=== PATIENT | female | born 1955 | race Caucasian/White ===

== ENCOUNTER 2017-04-13 15:04 | Outpatient (CLI) | payer OTHER ==
[~2017-04-13 15:04] MED LIST: CORT25TA PO; FLUC50TA PO; HYDR-1189 PO; LEVO1CAP7 PO; LEVO50TA77 PO; LIOT50TA4 PO; LIOT5TAB10 PO; LORA10TA7 PO; MONT10TA25 PO; PROG100C6 PO; TEST5GEL18 TD
== END 2017-04-13 20:48 | disposition home or self-care (01) ==
LOC: SRD 15:04
PROVIDERS: ATTEND Orthopaedic Surgery
DX: M47.896 Other spondylosis, lumbar region (principal); M41.85 Other forms of scoliosis, thoracolumbar region
CPT/HCPCS: 72110

== ENCOUNTER 2017-06-23 09:30 | Outpatient (CLI) | payer OTHER ==
[~2017-06-23] VITALS: Ht 167.6 cm; Wt 119.3 kg
[2017-06-23 10:56] VITALS: BP_SYST 137
[2017-06-23] MEDS ORDERED: ONDANSETRON HCL 4 MG/2 ML VIAL ONE (11:31)
== END 2017-06-23 21:21 | disposition home or self-care (01) ==
LOC: SLB 09:30 → SDS 09:30 → SPU 13:40 → SLB 13:40
PROVIDERS: ATTEND Specialist
DX: R32 Unspecified urinary incontinence (principal); Z53.29 Procedure and treatment not carried out because of patient's decision for other reasons
CPT/HCPCS: J2405; J7120

== ENCOUNTER 2017-07-01 05:45 | Day surgery (SDC) | payer OTHER ==
[~2017-07-01] VITALS: Ht 167.6 cm; Wt 119.3 kg
[2017-07-01] MEDS: KETOROLAC TROMETHAMINE 30 MG VIAL ONE (10:28)
[2017-07-01] MEDS ORDERED: HYDROcodone/ACETAMIN 5-325 MG TAB (NORCO/ VICODIN) PO PRN (10:30)
[2017-07-01] MEDS ORDERED: ONDANSETRON HCL 4 MG/2 ML VIAL IVP PRN (10:30)
[2017-07-01] MEDS ORDERED: OXYCODONE/ACETAMINOPHEN 5-325 TABLET PO PRN ×2 (10:30)
[2017-07-01] MEDS ORDERED: ALBUTEROL SULFATE 0.083% 2.5 MG/3 ML VIAL.NEB INH ONE ×2 (10:36→10:45)
[2017-07-01] MEDS ORDERED: OXYCODONE/ACETAMINOPHEN 5-325 TABLET ONE (11:37)
[2017-07-01] MEDS: OXYCODONE/ACETAMINOPHEN 5-325 TABLET PO ONE (12:15)
[2017-07-01] MEDS ORDERED: OXYCODONE/ACETAMINOPHEN 5-325 TABLET PO ONE (12:15)
[2017-07-01 13:03] VITALS: BP_SYST 136
== END 2017-07-01 16:00 | disposition home or self-care (01) ==
LOC: SMU 05:45 → SDS 05:45
PROVIDERS: ATTEND Specialist
DX: K42.9 Umbilical hernia without obstruction or gangrene (principal)
CPT/HCPCS: 49652; C1727; C1782; J1885; J7120

== ENCOUNTER 2017-07-28 15:03 | Outpatient (CLI) | payer OTHER | END 2017-07-28 18:44 | disposition home or self-care (01) | LOC: SLB 15:03 | PROVIDERS: ATTEND Specialist | DX: Z01.812 Encounter for preprocedural laboratory examination (principal) | CPT/HCPCS: 36415; 82565-TC; 84520-TC ==

== ENCOUNTER 2017-07-29 08:38 | Outpatient (CLI) | payer OTHER ==
[2017-07-29] MEDS ORDERED: DIATR MEGLU/DIATRIZ SOD 30 ML SOLUTION PO ONE (08:48)
[2017-07-29] MEDS ORDERED: IOHEXOL 100 ML IV ONE (10:47)
== END 2017-07-29 19:15 | disposition home or self-care (01) ==
LOC: SCT 08:38
PROVIDERS: ATTEND Specialist
DX: K43.9 Ventral hernia without obstruction or gangrene (principal); N28.1 Cyst of kidney, acquired; K44.9 Diaphragmatic hernia without obstruction or gangrene
CPT/HCPCS: 74177; Q9964; Q9967

== ENCOUNTER → 2018-08-04 | Outpatient (CLI) | payer OTHER ==
[2018-07-31 14:17] LABS: BILIRUBIN,URINE NEGATIVE (NEGATIVE); BLOOD, URINE NEGATIVE (NEGATIVE); CALCIUM 8.6 mg/dL (8.4-11.0); CLARITY/URINE CLEAR (CLEAR); COLOR,URINE YELLOW (YELLOW); CREATININE 0.64 mg/dL (0.55-1.30); GLUCOSE,URINE NEGATIVE (NEGATIVE); KETONES,URINE NEGATIVE (NEGATIVE); LEUKOCYTE ESTERASE ,URINE NEGATIVE (NEGATIVE); NITRITE, URINE NEGATIVE (NEGATIVE); PH,URINE 5.5 (5.0-8.0); POTASSIUM 3.7 mmol/L (3.5-5.1); PROTEIN URINE NEGATIVE (NEGATIVE); UROBILINOGEN,URINE 0.2 (0.2-1.0)
[2018-07-31 14:22] LABS: BASOPHILS # (AUTO) 0.2 K/uL (0.0-0.2); BASOPHILS % (AUTO) 1.5 % (0.0-2.0); EOSINOPHILS # (AUTO) 0.2 K/uL (0.0-0.4); HEMATOCRIT 39.4 % (36-48); HEMOGLOBIN 12.9 g/dL (12.0-16.0); LYMPHOCYTES # (AUTO) 4.2 K/uL (1.0-5.5); LYMPHOCYTES % (AUTO) 40.2 % (20.5-51.5); MEAN CORPUSCULAR HEMOGLOBIN 27 pg (27-31); MEAN CORPUSCULAR HGB CONC 33 % (32-36); MEAN CORPUSCULAR VOLUME 82 fL (79.0-98.0); MONOCYTES # (AUTO) 0.6 K/uL (0.0-1.0); MONOCYTES % (AUTO) 6.1 % (1.7-9.3); NEUTROPHILS # (AUTO) 5.3 K/uL (1.8-7.7); NEUTROPHILS % (AUTO) 50.2 % (40.0-70.0); PLATELET COUNT (AUTO) 237 K/uL (130-430); RED CELL DISTRIBUTION WIDTH 14.3 % (9.0-15.0); WHITE BLOOD COUNT (AUTO) 10.5 K/uL (4.8-10.8)
[~2018-08-04] VITALS: Ht 167.6 cm; Wt 117.5 kg
[~2018-08-04] MED LIST changes: +CLINDAMYCIN PHOS 900 MG/ D5W 50 ML PREMIX IV ONE; -LEVO50TA77 PO; +SYN50 PO
== END | disposition still patient (30) ==
LOC: EDSTATUS 08:43 → SLB 12:00
PROVIDERS: ATTEND Orthopaedic Surgery
DX: Z01.812 Encounter for preprocedural laboratory examination (principal); Z01.818 Encounter for other preprocedural examination; M23.207 Derangement of unspecified meniscus due to old tear or injury, left knee
CPT/HCPCS: 36415; 71046-TC; 80048; 81003; 85025; J3490

== ENCOUNTER 2018-12-29 10:28 | Day surgery (SDC) | payer OTHER ==
[2018-12-26 08:06] LABS: BILIRUBIN,URINE NEGATIVE (NEGATIVE); BLOOD, URINE NEGATIVE (NEGATIVE); CLARITY/URINE SL HAZY (CLEAR); COLOR,URINE YELLOW (YELLOW); GLUCOSE,URINE NEGATIVE (NEGATIVE); KETONES,URINE NEGATIVE (NEGATIVE); LEUKOCYTE ESTERASE ,URINE NEGATIVE (NEGATIVE); NITRITE, URINE NEGATIVE (NEGATIVE); PROTEIN URINE NEGATIVE (NEGATIVE); UROBILINOGEN,URINE 0.2 (0.2-1.0)
[2018-12-26 08:07] LABS: BASOPHILS # (AUTO) 0.1 K/uL (0.0-0.2); BASOPHILS % (AUTO) 0.5 % (0.0-2.0); EOSINOPHILS # (AUTO) 0.3 K/uL (0.0-0.4); EOSINOPHILS % (AUTO) 1.9 % (0.0-4.0); HEMATOCRIT 39.4 % (36-48); HEMOGLOBIN 12.9 g/dL (12.0-16.0); LYMPHOCYTES # (AUTO) 8.6 K/uL (1.0-5.5); LYMPHOCYTES % (AUTO) 52.5 % (20.5-51.5); MEAN CORPUSCULAR HEMOGLOBIN 28 pg (27-31); MEAN CORPUSCULAR HGB CONC 33 % (32-36); MEAN CORPUSCULAR VOLUME 85 fL (79.0-98.0); MONOCYTES # (AUTO) 0.8 K/uL (0.0-1.0); MONOCYTES % (AUTO) 4.6 % (1.7-9.3); NEUTROPHILS # (AUTO) 6.6 K/uL (1.8-7.7); PLATELET COUNT (AUTO) 284 K/uL (130-430); RED BLOOD CELL COUNT(AUTO) 4.64 MIL/uL (4.2-6.2); RED CELL DISTRIBUTION WIDTH 13.3 % (9.0-15.0); WHITE BLOOD COUNT (AUTO) 16.4 K/uL (4.8-10.8)
[2018-12-26 08:16] LABS: CREATININE 0.71 mg/dL (0.55-1.30); POTASSIUM 3.7 mmol/L (3.5-5.1)
[2018-12-26 10:45] LABS: NEUTROPHILS % (AUTO) 40.5 % (40.0-70.0)
[~2018-12-29] VITALS: Ht 167.6 cm; Wt 115.7 kg
[~2018-12-29 10:28] MED LIST changes: -CLINDAMYCIN PHOS 900 MG/ D5W 50 ML PREMIX IV ONE; +LevALBUTEROL HCL 1.25 MG/0.5 ML *CONC.* VIAL.NEB (XOPENEX CONC.) INH ONE
[2018-12-29] MEDS ORDERED: LEVALBUTEROL HCL 0.63 MG/3 ML VIAL.NEB INH ONE (10:30)
[2018-12-29] MEDS ORDERED: CLINDAMYCIN 900 mg/50mL D5W 50 ML IV ONE (10:45)
[2018-12-29] MEDS ORDERED: LevALBUTEROL HCL 1.25 MG/0.5 ML *CONC.* VIAL.NEB (XOPENEX CONC.) INH ONE (10:54)
[2018-12-29] MEDS ORDERED: CLINDAMYCIN PHOSPHATE 900 mg/50mL D5W IV ONE (11:15)
[2018-12-29] MEDS ORDERED: PROPOFOL 200MG/ 20ML VIAL (DIPRIVAN) IV ONE (11:15)
[2018-12-29] MEDS ORDERED: MIDAZOLAM HCL 5 MG/5 ML VIAL IVP ONE (11:15)
[2018-12-29] MEDS ORDERED: ONDANSETRON HCL 4 MG/2 ML VIAL IVP ONE (11:15)
[2018-12-29] MEDS ORDERED: DEXAMETHASONE SOD PHOSPHATE 4 MG/ML VIAL IVP ONE (11:15)
[2018-12-29] MEDS ORDERED: ROCURONIUM BROMIDE 10 MG/ML (ZEMURON) IV ONE (11:15)
[2018-12-29] MEDS ORDERED: KETOROLAC TROMETHAMINE 30 MG VIAL IVP ONE (11:15)
[2018-12-29] MEDS ORDERED: fentaNYL CITRATE 250 MCG/5 ML AMP IV ONE (11:15)
[2018-12-29] MEDS ORDERED: NS 1000 ML IV.SOLN IV ONE (11:15)
[2018-12-29] MEDS ORDERED: SEVOFLURANE 15 MIN GAS INH ONE (11:15)
[2018-12-29] MEDS ORDERED: METOCLOPRAMIDE HCL 10 MG/2 ML VIAL IVP ONE (11:15)
[2018-12-29] MEDS ORDERED: LR 1,000 ML IV SCH ×2 (12:31→13:29)
[2018-12-29] MEDS ORDERED: HYDROmorphone 1 MG INJ. 1 MG/ML AMPUL IVP PRN (12:45)
[2018-12-29] MEDS ORDERED: MEPERIDINE HCL/PF 25 MG/ML DISP.SYRIN IVP PRN (12:45)
[2018-12-29] MEDS ORDERED: HYDROmorphone 2 MG/ML VIAL IVP PRN ×2 (12:45)
[2018-12-29] MEDS ORDERED: HYDROcodone/ACETAMIN 5-325 MG TAB (NORCO/ VICODIN) PO PRN (13:30)
[2018-12-29] MEDS ORDERED: HYDROcodone/ACETAMIN 10-325 MG TAB PO PRN (13:30)
[2018-12-29] MEDS ORDERED: DIPHENHYDRAMINE HCL 25 MG CAPSULE PO PRN (13:30)
[2018-12-29] MEDS ORDERED: HYDROmorphone 2 MG/ML VIAL ONE (14:34)
[2018-12-29 15:22] VITALS: BP_SYST 133
[2018-12-29] MEDS ORDERED: HYDROcodone/ACETAMIN 5-325 MG TAB (NORCO/ VICODIN) ONE (16:08)
== END 2018-12-29 16:29 | disposition home or self-care (01) ==
LOC: SDS 10:28 → SMU 10:29 → SDS 16:29
PROVIDERS: ATTEND Orthopaedic Surgery
DX: M23.232 Derangement of other medial meniscus due to old tear or injury, left knee (principal); M17.12 Unilateral primary osteoarthritis, left knee; M23.92 Unspecified internal derangement of left knee; M94.262 Chondromalacia, left knee; M65.9 Synovitis and tenosynovitis, unspecified; M25.462 Effusion, left knee; C91.90 Lymphoid leukemia, unspecified not having achieved remission; B60.0 Babesiosis; Z68.41 Body mass index [BMI] 40.0-44.9, adult; N20.0 Calculus of kidney; Z91.09 Other allergy status, other than to drugs and biological substances; J45.909 Unspecified asthma, uncomplicated; G47.33 Obstructive sleep apnea (adult) (pediatric); Z99.81 Dependence on supplemental oxygen; N30.10 Interstitial cystitis (chronic) without hematuria; M79.7 Fibromyalgia; M40.209 Unspecified kyphosis, site unspecified; Z98.890 Other specified postprocedural states; Z79.899 Other long term (current) drug therapy; Z88.0 Allergy status to penicillin; Z88.2 Allergy status to sulfonamides; Z88.1 Allergy status to other antibiotic agents; Z80.9 Family history of malignant neoplasm, unspecified; E66.01 Morbid (severe) obesity due to excess calories
CPT/HCPCS: 29881; 36415; 80048; 81003; 85025; 94640; C1727; J1100; J1170; J1885; J2250; J2405; J2704; J2765; J3010; J3490; J7030; J7120; J7612

== ENCOUNTER 2020-03-21 10:28 | Outpatient (CLI) | payer OTHER ==
[~2020-03-21 10:28] MED LIST changes: -LIOT50TA4 PO; +LIOT50TA6 PO; -LIOT5TAB10 PO; +LIOT5TAB11 PO; -LevALBUTEROL HCL 1.25 MG/0.5 ML *CONC.* VIAL.NEB (XOPENEX CONC.) INH ONE; -MONT10TA25 PO; +MONT10TA27 PO; +PROG100C11 PO; -PROG100C6 PO
== END 2020-03-21 20:04 | disposition home or self-care (01) ==
LOC: SUS 10:28
DX: N63.20 Unspecified lump in the left breast, unspecified quadrant (principal); R92.8 Other abnormal and inconclusive findings on diagnostic imaging of breast
CPT/HCPCS: 76642; 76770

== ENCOUNTER 2022-06-30 11:47 | Day surgery (SDC) | payer OTHER ==
[2022-06-25 14:52] LABS: BILIRUBIN,URINE NEGATIVE (NEGATIVE); BLOOD, URINE NEGATIVE (NEGATIVE); CLARITY/URINE CLEAR (CLEAR); COLOR,URINE YELLOW (YELLOW); GLUCOSE,URINE NEGATIVE (NEGATIVE); KETONES,URINE NEGATIVE (NEGATIVE); LEUKOCYTE ESTERASE ,URINE NEGATIVE (NEGATIVE); NITRITE, URINE NEGATIVE (NEGATIVE); PH,URINE 5.5 (5.0-8.0); PROTEIN URINE NEGATIVE (NEGATIVE); UROBILINOGEN,URINE 0.2 (0.2-1.0)
[2022-06-25 14:54] LABS: BASOPHILS # (AUTO) 0.1 K/uL (0.0-0.2); BASOPHILS % (AUTO) 0.7 % (0.0-2.0); EOSINOPHILS # (AUTO) 0.1 K/uL (0.0-0.4); EOSINOPHILS % (AUTO) 0.4 % (0.0-4.0); HEMATOCRIT 34.5 % (36-48); HEMOGLOBIN 11.3 g/dL (12.0-16.0); LYMPHOCYTES # (AUTO) 10.3 K/uL (1.0-5.5); LYMPHOCYTES % (AUTO) 50.7 % (20.5-51.5); MEAN CORPUSCULAR HEMOGLOBIN 25 pg (27-31); MEAN CORPUSCULAR HGB CONC 33 % (32-36); MEAN CORPUSCULAR VOLUME 76 fL (79.0-98.0); MONOCYTES % (AUTO) 4.8 % (1.7-9.3); NEUTROPHILS # (AUTO) 8.9 K/uL (1.8-7.7); NEUTROPHILS % (AUTO) 43.4 % (40.0-70.0); PLATELET COUNT (AUTO) 312 K/uL (130-430); RED BLOOD CELL COUNT(AUTO) 4.52 MIL/uL (4.2-6.2); RED CELL DISTRIBUTION WIDTH 15.3 % (9.0-15.0); WHITE BLOOD COUNT (AUTO) 20.4 K/uL (4.8-10.8)
[2022-06-25 14:55] LABS: HCG,QUAL RESULT NEGATIVE (NEGATIVE)
[2022-06-25 15:16] LABS: ALBUMIN 3.3 g/dL (3.4-4.8); CALCIUM 8.8 mg/dL (8.4-11.0); CREATININE 0.72 mg/dL (0.55-1.30); TOTAL BILIRUBIN 0.3 mg/dL (0.0-1.0)
[~2022-06-30] VITALS: Ht 166.4 cm; Wt 120.2 kg
[~2022-06-30 11:47] MED LIST changes: +CEFAZOLIN SOD 2 GM in D5W 50 ML IV ONE; -HYDR-1189 PO; +HYDR-3919 PO; +MONT-40 PO; -MONT10TA27 PO
[2022-06-30 13:34] LABS: BASOPHILS # (AUTO) 0.3 K/uL (0.0-0.2); BASOPHILS % (AUTO) 1.1 % (0.0-2.0); EOSINOPHILS % (AUTO) 0.1 % (0.0-4.0); HEMATOCRIT 34.9 % (36-48); HEMOGLOBIN 11.3 g/dL (12.0-16.0); LYMPHOCYTES # (AUTO) 10.3 K/uL (1.0-5.5); LYMPHOCYTES % (AUTO) 37.2 % (20.5-51.5); MEAN CORPUSCULAR HEMOGLOBIN 25 pg (27-31); MEAN CORPUSCULAR HGB CONC 32 % (32-36); MEAN CORPUSCULAR VOLUME 76 fL (79.0-98.0); MONOCYTES # (AUTO) 0.6 K/uL (0.0-1.0); NEUTROPHILS # (AUTO) 16.6 K/uL (1.8-7.7); NEUTROPHILS % (AUTO) 59.6 % (40.0-70.0); PLATELET COUNT (AUTO) 300 K/uL (130-430); RED BLOOD CELL COUNT(AUTO) 4.59 MIL/uL (4.2-6.2); RED CELL DISTRIBUTION WIDTH 14.9 % (9.0-15.0); WHITE BLOOD COUNT (AUTO) 27.8 K/uL (4.8-10.8)
[2022-06-30 14:08] VITALS: BP_SYST 149
[2022-06-30 15:01] LABS: BILIRUBIN,URINE NEGATIVE (NEGATIVE); BLOOD, URINE NEGATIVE (NEGATIVE); CLARITY/URINE CLEAR (CLEAR); COLOR,URINE YELLOW (YELLOW); GLUCOSE,URINE NEGATIVE (NEGATIVE); KETONES,URINE NEGATIVE (NEGATIVE); LEUKOCYTE ESTERASE ,URINE NEGATIVE (NEGATIVE); NITRITE, URINE NEGATIVE (NEGATIVE); PROTEIN URINE NEGATIVE (NEGATIVE); UROBILINOGEN,URINE 0.2 (0.2-1.0)
== END 2022-06-30 15:38 | disposition home or self-care (01) ==
LOC: SDS 11:47 → SMU 11:51 → SDS 15:38
PROVIDERS: ATTEND Specialist
DX: N81.2 Incomplete uterovaginal prolapse (principal); N81.4 Uterovaginal prolapse, unspecified; K21.9 Gastro-esophageal reflux disease without esophagitis; J45.909 Unspecified asthma, uncomplicated; C91.10 Chronic lymphocytic leukemia of B-cell type not having achieved remission; Z20.822 Contact with and (suspected) exposure to COVID-19; Z53.8 Procedure and treatment not carried out for other reasons
CPT/HCPCS: 80053; 84703; 85025 ×2; 36415 ×2; 81003 ×2; 71045; 71046; 87426; U0003; J0690; J7060; J7120; A6209